=== PATIENT | female | born 1985 | race Caucasian/White ===

== ENCOUNTER 2022-08-02 14:41 | Outpatient (NON) | payer BC, MEDICAID, SELFPAY | END 2022-08-02 14:42 | disposition home or self-care (01) | LOC: CHSLAB 14:44 | PROVIDERS: PCP Nurse Practitioner Family; Visit Provider Nurse Practitioner Family | DX: L02.91 Cutaneous abscess, unspecified (principal) | CPT/HCPCS: 87070; 87075; 87147; 87186; 87205 ==

== ENCOUNTER 2022-10-29 13:15 | Emergency (ER) | payer BC, MEDICAID, SELFPAY ==
--- NOTE | ~2022-10-29 | CT_ITS ---
EXAMINATION: CT brain wo con DATE: 10/29/2022 17:13 INDICATION: Lack of coordination. Strange behavior. TECHNIQUE: Computed tomography (CT) of the head was performed without intravenous contrast. The mA wa s adjusted according to patient size. Iterative reconstruction technique was employed. The dose-lengt h product was 681.00 mGy-cm. COMPARISON: None FINDINGS: There is no intracranial hemorrhage, acute infarction, or abnormal intracranial mass lesion . The ventricles are normal in size. There is mild mucosal thickening in the paranasal sinuses. The o rbits are normal. The mastoid air cells are normal. There is a 16 mm mass with calcifications in the scalp on the left, likely benign. IMPRESSION: 1. Normal brain. Reviewed, dictated and finalized at location E. IMPRESSION: 1. Normal brain.
[2022-10-29 13:15] VITALS: BP 120/85; PULSE 78; RESP 20; TEMP 37.2; O2SAT 100
[2022-10-29 14:42] LABS: Basophils Absolute Auto 0.05 K/mm3 (0.00-0.10); Basophils Percent Auto 0.3 % (0.0-1.0); Eosinophils Absolute Auto 0.02 K/mm3 (0.02-0.50); Eosinophils Percent Auto 0.1 % (1.0-6.0); Hematocrit 42.8 % (35.0-49.0); Hemoglobin 14.3 g/dL (12.0-15.0); Immature Granulocyte Percent A 0.6 % (0.0-0.0); Lymphocytes Absolute Auto 1.38 K/mm3 (1.10-4.50); Lymphocytes Percent Auto 7.9 % (18.0-42.0); Mean Corpuscular HGB Conc 33.4 g/dL (32.0-36.0); Mean Corpuscular Hemoglobin 29.1 pg (27.0-31.0); Mean Platelet Volume 9.6 fl (9.2-11.8); Monocytes Absolute Auto 1.18 K/mm3 (0.10-0.90); Monocytes Percent Auto 6.8 % (2.0-11.0); Neutrophils Absolute Auto 14.7 K/mm3 (1.7-7.2); Neutrophils Percent Auto 84.3 % (50.0-70.0); Platelet Count Result 305 K/mm3 (150-420); Red Blood Count 4.92 M/mm3 (4.20-5.40); Red Cell Distribution Width 12.1 % (11.6-14.4); White Blood Count 17.4 K/mm3 (4.8-10.8)
--- NOTE | 2022-10-29 14:43 | ED.GENADULT ---
HPI - General Adult General Chief complaint: Unspecified Stated complaint: weakness History of Present Illness HPI narrative: 37yo woman who was listed as a missing person since yesterday, being actively sought by search and rescue crews and found today in deep [place] of her grandparents' [address] acre property and brought in by the [employer] department. Notably, pt's van was first located at the property and contents included journal entries and letters describing the supernatural - angelbyron veras, abstract reference to a boyfriend named Siddharth who she admits is not a real physical person, and reference to seeking out the [facility] with Siddharth's help. No mention of self harm or suicide. Pt denies suicidal thoughts, desire for self harm, wanting to , or fear of any unsafe situation or abusive situation. Was not going to the [place] to meet anyone or escape from anyone. Has two children, ages 6 and 8, from her marriage, which years ago, and who were staying with her over the weekend in joint custody arrangement. Pt has seen her parents since being found earlier today, has a good relationship with them, gets lots of help with childcare from them. Oddly, pt was not dressed for the gamino, wearing very short cut-off fina shorts high on the thigh and a t-shirt. She says she became lost and had to sleep out there, where temperatures overnight were in the 40s. Pt feels fatigued, has multiple superficial abrasions on the legs and thighs from the thick brush, and would like to stay and rest and eat here where the warmth feels good. Related Data Home Medications Medication Instructions Recorded Confirmed No Home Medications 10/29/22 10/29/22 Allergies Allergy/AdvReac Type Severity Reaction Status Date / Time codeine Allergy Intermediate Nausea Verified 10/29/22 13:34 Review of Systems Review of Systems: All systems reviewed & are unremarkable except as noted in HPI and below Constitutional: Constitutional: Denies chills and Denies fever(s) ENT: Denies dysphagia Cardiovascular: Cardiovascular: Denies chest pain Respiratory: Respiratory: Denies dyspnea Gastrointestinal: Gastrointestinal: Denies abdominal pain Neurologic: Denies confusion, Denies vertigo, Denies dizziness, Denies numbness and Denies weakness Psychiatric: Psychiatric: Denies anxiety, Denies depression, Denies homicidal ideation and Denies suicidal ideation PMFSH Past Medical History Medical History Anxiety state, unspecified Surgical History Surgical History History of tonsillectomy Social History Social History Smoking status: Never smoker Alcohol intake: never Substance use: never Substance use type: does not use Living arrangements: with family Occupation/Education: occupation Exam Const: General: healthy appearing and no acute distress Nutritional Appearance: well nourished Eyes: Conjunctivae: conjunctivae normal Resp: Effort & Inspection: normal respiratory effort and not labored Cardio: Rate: regular rate GI: Inspection: non-distended Skin: General skin exam: normal color, no jaundice and no pallor Other: numerous very superficial scrapes to both legs and thighs Neuro: General: patient oriented x3 and moves all extremities Gait exam (Neuro): Normal gait present Other: fluent speech Extrem: General: normal to inspection and no clubbing, cyanosis or edema Psych: Other: euthymic, affect calm and slightly diminished, speech slightly slowed, otherwise fluent; in conversation pt's thought content is grossly normal with some mention of the supernatural and while she appears careful to avoid saying anything too odd she appears to be forthright about her thoughts and acknowledges that in her journal and letters she makes mention of
[2022-10-29 14:50] VITALS: BP 131/60; PULSE 78; RESP 16; TEMP 36.6; O2SAT 98
--- NOTE | 2022-10-29 15:55 | PC.NURSE ---
lab analyzer not functional at this time. lab staff states they are sending pt specimens to [facility] for completion.
[2022-10-29 16:00] LABS: Appearance Urine Slightly Cloudy (Clear); Bilirubin Urine Negative (Negative); Blood Urine Trace-Intact (Negative); Color Urine Yellow (Yellow); Glucose Urine UA Negative (Negative); Ketones Urine 3+ (Negative); Leukocyte Esterase Ur Trace LEU/UL (Negative); Nitrate Urine Negative (Negative); Protein Urine Negative (Negative); Specific Grav Ur 1.025 (1.010-1.020); Urobilinogen Urine 0.2 mg/dL (0.2-1.0)
[2022-10-29 16:04] LABS: Add Urine Microscopic? YES; Bacteria Urine 1+ /hpf; Pregnancy On Board Control Positive; RBC Urine 0-2 /hpf (0-2); Squamous Epithelial Cell Urine Moderate /hpf (Few); Urine Pregnancy Test Negative; WBC Urine 0-3 /hpf (0-3)
[2022-10-29 16:07] LABS: Amphetamine Screen Urine Negative (Negative); Barbiturate Screen Urine Negative (Negative); Benzodiazepines Screen Urine Negative (Negative); Cannabinoid Screen Urine Negative (Negative); Cocaine Screen Urine Negative (Negative); Methadone Screen Urine Negative (Negative); Opiate Screen Urine Negative (Negative); Phencyclidine Screen Urine Negative (Negative)
[2022-10-29 16:43] LABS: Alanine Aminotransferase 33 U/L (6-35); Albumin Level 4.7 g/dL (3.5-5.1); Alkaline Phosphatase 78 U/L (38-126); Aspartate Amino Transferase 122 U/L (14-36); Bilirubin,Total 1.4 mg/dL (0.2-1.3); Blood Urea Nitrogen 16 mg/dL (7-17); Calcium 9.6 mg/dL (8.4-10.2); Glucose 90 mg/dL (65-110)
[2022-10-29 16:44] LABS: Acetaminophen < 10 ug/mL (10-30); Ethanol < 10 mg/dL (<10); Salicylate < 1.0 mg/dL (2-20)
[2022-10-29 16:50] VITALS: BP 129/62; PULSE 80; RESP 16; TEMP 36.2; O2SAT 100
[2022-10-29 16:59] LABS: Carbon Dioxide 23 mmol/L (22-30); Chloride 98 mmol/L (98-107); Sodium 134 mmol/L (137-145)
[2022-10-29 17:19] LABS: Anion Gap 17 mmol/L (8-16)
[2022-10-29 17:29] LABS: Thyroid Stimulating Hormone Reflex 2.58 u/IU/mL (0.36-3.74)
[2022-10-29 18:13] LABS: Erythrocyte Sedimentation Rate 12 mm/hr (0-15)
[2022-10-29 18:36] VITALS: BP 121/76; PULSE 78; RESP 16; TEMP 37; O2SAT 99
--- NOTE | 2022-10-29 19:34 | PC.NURSE ---
Pt resting, d/c instructions for o/p f/u given by [facility] counselors and paperwork provided.
[2022-10-29 19:44] VITALS: BP 118/74; PULSE 87; RESP 20; TEMP 37.1; O2SAT 98
--- NOTE | 2022-11-04 13:34 | PC.NURSE ---
final blood culture reports x2 reviewed. no growth after 5 days. no change in plan of care
== END 2022-10-29 19:50 | disposition home or self-care (01) ==
PROVIDERS: Emergency Provider Emergency Medicine; PCP Nurse Practitioner Family
DX: S70.312A Abrasion, left thigh, initial encounter (principal); S70.311A Abrasion, right thigh, initial encounter; L72.9 Follicular cyst of the skin and subcutaneous tissue, unspecified; F91.9 Conduct disorder, unspecified; X58.XXXA Exposure to other specified factors, initial encounter
CPT/HCPCS: 36415; 70450; 80053; 80307; 81001; 81025; 84443; 85025; 85652; 87040; 99284

== ENCOUNTER 2024-03-05 18:52 | Emergency (ER) | payer BC, SELFPAY ==
[2024-03-05 18:59] VITALS: BP 117/79; PULSE 60; RESP 18; TEMP 36.3; O2SAT 100
--- NOTE | 2024-03-05 19:24 | ED_ITS ---
HPI - Skin/Abscess/Foreign Bdy General Chief complaint: Urogenital-Female Stated complaint: Stomach Issues, Bladder Time Seen by Provider: 03/05/24 19:15 Source: patient Mode of arrival: ambulatory Limitations: no limitations History of Present Illness HPI narrative: 38 yo F presents with c/o rectal itching for 6 wks. Worse in the morning and after having a BM. Denies hemorrhoids. States not bleeding or pain. Having normal BMs. 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 Is concerned that she has pinworms. All systems reviewed and negative except as noted above. Related Data Home Medications ?Medication ?Instructions ?Recorded ?Confirmed ?Last Taken ?Type sertraline 100 mg tablet 100 mg PO DAILY 01/09/23 Unknown History benztropine 0.5 mg tablet mg 03/05/24 Unknown History bupropion HCl 150 mg 24 hr tablet, mg PO 03/05/24 Unknown History extended release Allergies Allergy/AdvReac Type Severity Reaction Status Date / Time codeine AdvReac Intermediate Nausea Verified 03/05/24 19:04 Review of Systems Review of Systems: CONSTITUTIONAL: Denies fever, chills, or sweats. EYES: Denies visual changes, redness, or discharge. ENT: Denies rhinorrhea, congestion, sore throat, or otalgia. CARDIOVASCULAR: Denies chest pain, palpitations, or edema. RESPIRATORY: Denies cough or dyspnea. GASTROINTESTINAL: Denies abdominal pain, nausea, vomiting, or diarrhea. reports rectal itching GENITOURINARY: Denies dysuria or hematuria. SKIN: Denies rash or itching. MUSCULOSKELETAL: Denies back pain, joint pain, or myalgia. NEUROLOGIC: Denies headache, numbness, or weakness. PSYCHIATRIC: Denies anxiety or depression. All other systems reviewed are negative, except as documented in HPI. [facility] Past Medical History Medical History Anxiety state, unspecified Surgical History Surgical History History of tonsillectomy Social History Social History Smoking status: Never smoker Alcohol intake: never Substance use: never Substance use type: does not use Living arrangements: with family Occupation/Education: occupation Comments At time of signature, agree with nursing past medical, surgical, social and family history. There is no relevant family history pertinent to the presenting complaint. Exam Narrative: GENERAL: This is a well-nourished, well-developed patient, in no apparent distress. HEAD: normocephalic, atraumatic. EYES: PERRL. Sclera clear/white. Vision is grossly intact. EARS: External ears normal NOSE: External nose normal NECK: Neck supple, non-tender without lymphadenopathy, masses or thyromegaly. CARDIOVASCULAR: Regular rate and rhythm without murmurs, gallops, or rubs. RESPIRATORY: Clear to auscultation. Breath sounds equal bilaterally. No wheezes, rales, or rhonchi. GASTROINTESTINAL: Abdomen soft, non-tender, nondistended. Bowel sounds are active. No hepato-splenomegaly, or palpable masses. No guarding. rectal exam deferred SKIN: warm, Dry, intact with no suspicious lesions or rash, good texture and turgor. NEURO: awake, alert, and oriented to person, place and time. There were no obvious focal neurologic abnormalities. EXTREMITIES: No joint tenderness, effusion, or edema noted. Course Course Level of Care: [facility] Visit Vital Signs Vital signs: Vital Signs Temperature 36.3 C L 03/05/24 18:59 Pulse Rate 60 03/05/24 18:59 Respiratory Rate 18 03/05/24 18:59 Blood Pressure 117/79 03/05/24 18:59 Pulse Oximetry 100 03/05/24 18:59 Oxygen Delivery Room Air 03/05/24 18:59 Temperature 36.3 C L 03/05/24 18:59 Pulse Rate 60 03/05/24 18:59 Respiratory Rate 18 03/05/24 18:59 Blood Pressure 117/79 03/05/24 18:59 Pulse Oximetry 100 03/05/24 18:59 Oxygen Delivery Room Air 03/05/24 18:59 reviewed MDM - Skin/Abscess/Foreign Bdy MDM Narrative Medical decision making narrative: explained to pt that we do not have testing at [facility] to check for pinworms. offered rectal exam but explained usually cannot see pinworms on rectal surface. pt deferred rectal exam. would prefer to take medication and see her PCP if not improving. she is adamant that she does not have hemorrhoids. well appearing, nontoxic. Patient is aware of diagnosis, understands and agrees to treatment plan. Anticipatory guidance given. Patient agrees to follow-up as directed and is aware of reasons to seek care at the emergency department. Portions of this record may have been created with voice recognition software Discharge Plan Discharge Clinical Impression: Rectal itching, Pinworm infection Patient Disposition: Home, Self-Care Condition: Stable Instructions: Pinworm Infection (ED) Additional Instructions: Take medication as prescribed. If symptoms not improving follow up with your primary care physician. Patient Language: [place] Prescriptions: New albendazole 200 mg tablet 400 mg PO ONCE Qty: 4 0RF Rx Instructions: Take 2 tablets today. Repeat in 2 weeks if symptoms not resolved. No Action benztropine 0.5 mg tablet bupropion HCl 150 mg tablet extended release 24 hr PO sertraline 100 mg tablet 100 mg PO DAILY risperidone 1 mg tablet 1 mg PO BID Qty: 90 3RF Follow-up/Referrals: UNKNOWN,DOCTOR [Primary Care Provider] - Time of Disposition: 19:19
== END 2024-03-05 19:25 | disposition home or self-care (01) ==
PROVIDERS: Emergency Provider Nurse Practitioner Family
DX: B80 Enterobiasis (principal)
CPT/HCPCS: 99213; G0463